=== PATIENT | male | born 1950 | race Caucasian/White ===

== ENCOUNTER → 2016-08-14 | Outpatient (CLI) | payer OTHER ==
[~2016-08-14] VITALS: Ht 172.7 cm; Wt 88.9 kg
[~2016-08-14] MED LIST: Ecotrin PO; LIPITOR80 MG PO; LOPRESSOR25 MG PO; NOHOMEMEDS; PLAVIX75 MG PO; ZESTRIL5 MG PO; Zestril,Prinivil PO
== END | disposition home or self-care (01) ==
LOC: AMB 11:21
DX: R10.13 Epigastric pain (principal); K29.90 Gastroduodenitis, unspecified, without bleeding; B96.81 Helicobacter pylori [H. pylori] as the cause of diseases classified elsewhere; K25.9 Gastric ulcer, unspecified as acute or chronic, without hemorrhage or perforation; Z12.11 Encounter for screening for malignant neoplasm of colon; D12.3 Benign neoplasm of transverse colon; K62.89 Other specified diseases of anus and rectum; K64.9 Unspecified hemorrhoids; K62.1 Rectal polyp; Z87.891 Personal history of nicotine dependence; M19.90 Unspecified osteoarthritis, unspecified site
CPT/HCPCS: 88305; 88342 TC; 93005; J3010

== ENCOUNTER 2017-06-12 14:48 | Emergency (ER) | payer OTHER ==
[~2017-06-12] VITALS: Ht 172.7 cm; Wt 88.1 kg
[2017-06-12] MEDS ORDERED: NORCO 5/3251 TABLET PO (16:49)
[2017-06-12] MEDS ORDERED: SKELAXIN800 MG PO (16:49)
[2017-06-12] MEDS ORDERED: MOTRIN600 MG PO (16:49)
[2017-06-12 17:00] VITALS: BP 136/78
== END 2017-06-12 17:01 | disposition home or self-care (01) ==
LOC: EME 14:48
DX: S29.012A Strain of muscle and tendon of back wall of thorax, initial encounter (principal); X58.XXXA Exposure to other specified factors, initial encounter; R05 Cough; E78.5 Hyperlipidemia, unspecified; I25.2 Old myocardial infarction; Z79.01 Long term (current) use of anticoagulants; F17.200 Nicotine dependence, unspecified, uncomplicated
CPT/HCPCS: 71020; 93005; 99281; 99283; J1885

== ENCOUNTER 2017-07-30 20:12 | Emergency (ER) | payer OTHER ==
[~2017-07-30] VITALS: Ht 172.7 cm; Wt 86.3 kg
[~2017-07-30 20:12] MED LIST changes: +MOTRIN600 MG PO; +NORCO 5/3251 TABLET PO; +SKELAXIN800 MG PO
[2017-07-30 20:47] LABS: HEMATOCRIT 44.2 % (38.0-50.0); HEMOGLOBIN 15.2 G/DL (12.5-16.6); MCHC 34.4 G/DL (30.0-36.0); MCV 90.2 FL (86-99); NRBC (%) 0.3 /100 WBC (0-0); PLATELET COUNT 83 K/uL (156-360); RBC DIS.WIDTH-CV 12.5 % (11.8-14.6); RBC DIS.WIDTH-SD 41.1 % (39-53)
[2017-07-30 20:58] LABS: CHLORIDE 106 mEq/L (99-109); POTASSIUM 3.7 mEq/L (3.7-5.4); SODIUM 137 mEq/L (136-147)
[2017-07-30 21:00] LABS: GLUCOSE 182 mg/dL (70-99)
[2017-07-30 21:04] LABS: CREATININE 0.9 mg/dL (0.6-1.3); GFR ESTIMATE (CALCULATED) > 59 mL/min/ (58.99-99999)
[2017-07-30 21:05] LABS: UREA NITROGEN (BUN) 27 mg/dL (9-23)
[2017-07-30 21:34] LABS: APPEARANCE CLEAR ((CLEAR)); BILIRUBIN NEGATIVE; BLOOD MODERATE; COLOR YELLOW ((YELLOW)); GLUCOSE (STRIP) NEGATIVE; KETONES NEGATIVE; LEUKOCYTES NEGATIVE; NITRITE NEGATIVE; PROTEIN (STRIP) NEGATIVE; SPECIFIC GRAVITY 1.016 (1.000-1.030); UROBILINOGEN 0.2 MG/DL (0.2-1.0)
[2017-07-30 21:52] LABS: BACTERIA NONE SEEN /HPF; EPITHELIAL CELLS NONE SEEN /HPF; MUCUS TRACE /LPF; RED BLOOD CELLS 30-40 /HPF (0-5); UCUL ADDED? NO; WHITE BLOOD CELLS 0-5 /HPF (0-5)
[2017-07-31] MEDS ORDERED: VENTOLIN HFA18 GM IH (00:56)
[2017-07-31] MEDS ORDERED: PROVENTIL,2.5 MG/3 M IH (00:56)
[2017-07-31 02:23] VITALS: BP 130/75
== END 2017-07-31 02:25 | disposition home or self-care (01) ==
LOC: EME 20:12
PROVIDERS: Nurse Practitioner Family
DX: J06.9 Acute upper respiratory infection, unspecified (principal); S20.212A Contusion of left front wall of thorax, initial encounter; X58.XXXA Exposure to other specified factors, initial encounter; F17.200 Nicotine dependence, unspecified, uncomplicated; E78.5 Hyperlipidemia, unspecified; I25.2 Old myocardial infarction
CPT/HCPCS: 71046; 80048; 81003; 85027; 87502; 94640; 99281; 99284

== ENCOUNTER 2017-08-31 20:16 | Inpatient (IN) | payer OTHER, MEDICARE ==
[~2017-08-31] VITALS: Ht 172.7 cm; Wt 82.2 kg
[~2017-08-31 20:16] MED LIST changes: +PROVENTIL,2.5 MG/3 M IH; +VENTOLIN HFA18 GM IH
[2017-08-31 21:11] LABS: HEMATOCRIT 21.8 % (38.0-50.0); HEMOGLOBIN 7.3 G/DL (12.5-16.6); MCH 31.5 PG (29.0-34.0); MCHC 33.5 G/DL (30.0-36.0); NRBC (%) 11.3 /100 WBC (0-0); RBC DIS.WIDTH-CV 16.5 % (11.8-14.6); RBC DIS.WIDTH-SD 51.8 % (39-53); RED BLOOD COUNT 2.32 M/uL (4.00-5.50); WHITE BLOOD COUNT 6.6 K/uL (4.1-10.2)
[2017-08-31] MEDS ORDERED: ALBUTEROL2.5 MG/3 M IH (21:17)
[2017-08-31] MEDS ORDERED: NARCAN4 MG NS (21:18)
[2017-08-31] MEDS ORDERED: AMARYL1 MG PO (21:18)
[2017-08-31] MEDS ORDERED: ENDOCET 5-3251 EACH PO (21:18)
[2017-08-31 21:19] LABS: ALBUMIN 3.4 g/dL (3.2-4.8); CHLORIDE 98 mEq/L (99-109); POTASSIUM 3.8 mEq/L (3.7-5.4); SODIUM 136 mEq/L (136-147)
[2017-08-31] MEDS ORDERED: CYANOCOBALAM1000 MCG PO (21:19)
[2017-08-31 21:21] LABS: GLUCOSE 168 mg/dL (70-99); TOTAL PROTEIN 6.1 g/dL (6.4-8.3)
[2017-08-31 21:23] LABS: TOTAL BILIRUBIN 4.9 mg/dL (0.0-1.0)
[2017-08-31 21:25] LABS: ALKALINE PHOSPHATASE 585 IU/L (3-129); CREATININE 0.8 mg/dL (0.6-1.3); GFR ESTIMATE (CALCULATED) > 59 mL/min/ (58.99-99999)
[2017-08-31 21:26] LABS: AST (GOT) 169 IU/L (2-34); INTER. NORMALIZED RATIO 1.4; UREA NITROGEN (BUN) 21 mg/dL (9-23)
[2017-08-31 21:27] LABS: DIRECT BILIRUBIN 3.7 mg/dL (0.0-0.3)
[2017-08-31 21:28] LABS: ALT (GPT) 197 IU/L (3-49); LIPASE 33 U/L (1.0-51.0); URIC ACID 6.7 mg/dL (3.1-9.2)
[2017-08-31 21:52] LABS: FIBRINOGEN 341 mg/dL (150-450)
[2017-08-31 22:01] LABS: ABS NEUTROPHIL COUNT 5.4; ANISOCYTOSIS 1+; BAND NEUTROPHILS 11.7 % (0-8.0); EOSINOPHIL ABS CT 0; HYPOCHROMASIA 2+; LACTATE DEHYDROGENASE 1079 IU/L (20-246); LYMPHOCYTES 10.8 % (15.0-45.0); MICROCYTOSIS 1+; MONOCYTES 6.3 % (0-9.0); MYELOCYTES 0.9 %; NUCLEATED RBC'S 13.5; PLAT.SUFFICIENCY VERY DECREASED; POLYCHROMASIA 2+; SCHISTOCYTES 1+; SEG.NEUTROPHILS 70.3 % (46.0-76.0); TEAR DROP CELLS 1+
[2017-08-31 22:02] LABS: IMM.PLATELET FRACTION 6.5 (1-7)
[2017-08-31 22:04] LABS: PLATELET COUNT 26 K/uL (156-360)
[2017-08-31 22:24] VITALS: BP 145/77
[2017-08-31 22:39] VITALS: BP 109/64
[2017-08-31 23:40] VITALS: BP 140/77
[2017-09-01] VITALS (7 sets, daily range): BP systolic 99–132; BP diastolic 57–81
[2017-09-01 04:03] LABS: HEMATOCRIT 22.6 % (38.0-50.0); HEMOGLOBIN 7.7 G/DL (12.5-16.6); MCHC 34.1 G/DL (30.0-36.0); MCV 93.8 FL (86-99); RBC DIS.WIDTH-CV 15.9 % (11.8-14.6); RBC DIS.WIDTH-SD 49.8 % (39-53); RED BLOOD COUNT 2.41 M/uL (4.00-5.50); WHITE BLOOD COUNT 6.6 K/uL (4.1-10.2)
[2017-09-01 04:15] LABS: CHLORIDE 100 mEq/L (99-109); POTASSIUM 3.9 mEq/L (3.7-5.4); SODIUM 137 mEq/L (136-147)
[2017-09-01 04:17] LABS: GLUCOSE 155 mg/dL (70-99)
[2017-09-01 04:21] LABS: CREATININE 0.7 mg/dL (0.6-1.3); GFR ESTIMATE (CALCULATED) > 59 mL/min/ (58.99-99999); UREA NITROGEN (BUN) 21 mg/dL (9-23)
[2017-09-01 04:53] LABS: IMM.PLATELET FRACTION 6.8 (1-7); PLAT.SUFFICIENCY VERY DECREASED; PLATELET COUNT 23 K/uL (156-360)
[2017-09-01 10:32] LABS: TROP-I INTERPRETATION NEGATIVE; TROPONIN-I 0.01 ng/mL (0.0-0.30)
[2017-09-01 16:38] LABS: ALBUMIN 3.4 G/DL (3.2-4.8); CHLORIDE 100 MEQ/L (99-109); POTASSIUM 3.7 MEQ/L (3.7-5.4); SODIUM 135 MEQ/L (136-147); TOTAL BILIRUBIN 6.1 MG/DL (0.0-1.0)
[2017-09-01 16:54] LABS: ALKALINE PHOSPHATASE 555 IU/L (3-129); ALT (GPT) 147 IU/L (3-49); AST (GOT) 159 IU/L (2-34); CREATININE 0.7 MG/DL (0.6-1.3); GFR ESTIMATE (CALCULATED) > 59 mL/min/ (58.99-99999); GLUCOSE 173 mg/dL (70-99); TOTAL PROTEIN 5.7 G/DL (6.4-8.3); UREA NITROGEN (BUN) 21 mg/dL (9-23); URIC ACID 6.4 mg/dL (3.1-9.2)
[2017-09-01 17:03] LABS: HEMATOCRIT 22.9 % (38.0-50.0); HEMOGLOBIN 7.4 G/DL (12.5-16.6); MCH 30.6 PG (29.0-34.0); MCHC 32.3 G/DL (30.0-36.0); MCV 94.6 FL (86-99); NRBC (%) 12.1 /100 WBC (0-0); RBC DIS.WIDTH-CV 16.2 % (11.8-14.6); RBC DIS.WIDTH-SD 50.2 % (39-53); RED BLOOD COUNT 2.42 M/uL (4.00-5.50); WHITE BLOOD COUNT 6.2 K/uL (4.1-10.2)
[2017-09-01 17:56] LABS: ABS NEUTROPHIL COUNT 4.3; ANISOCYTOSIS 1+; BAND NEUTROPHILS 29.8 % (0-8.0); EOSINOPHIL ABS CT 0.1; EOSINOPHILS 0.9 % (0-5.0); HEMATOLOGY COMMENT 1 SN; HYPOCHROMASIA 1+; IMM.PLATELET FRACTION 6.7 (1-7); LYMPHOCYTES 15.8 % (15.0-45.0); METAMYELOCYTES 1.8 %; MONOCYTES 6.1 % (0-9.0); MYELOCYTES 5.3 %; NUCLEATED RBC'S 10.5; PLAT.SUFFICIENCY DECREASED; POLYCHROMASIA 1+
[2017-09-01 17:57] LABS: PLATELET COUNT 25 K/uL (156-360); SEG.NEUTROPHILS 40.3 % (46.0-76.0)
[2017-09-01 18:03] LABS: LACTATE DEHYDROGENASE 1447 IU/L (20-246)
[2017-09-02] VITALS (11 sets, daily range): BP systolic 93–123; BP diastolic 52–65
[2017-09-02 07:13] LABS: HEMATOCRIT 20.5 % (38.0-50.0); MCH 31.5 PG (29.0-34.0); MCHC 33.2 G/DL (30.0-36.0); MCV 94.9 FL (86-99); NRBC (%) 8.4 /100 WBC (0-0); RBC DIS.WIDTH-CV 16.3 % (11.8-14.6); RBC DIS.WIDTH-SD 52.6 % (39-53); RED BLOOD COUNT 2.16 M/uL (4.00-5.50); WHITE BLOOD COUNT 4.2 K/uL (4.1-10.2)
[2017-09-02 07:14] LABS: HEMOGLOBIN 6.8 G/DL (12.5-16.6)
[2017-09-02 07:25] LABS: ABS NEUTROPHIL COUNT 2.9; BASOPHILS 1.7 %; EOSINOPHIL ABS CT 0; IMM.PLATELET FRACTION 7.1 (1-7); LYMPHOCYTES 13.9 % (15.0-45.0); MONOCYTES 6.1 % (0-9.0); MYELOCYTES 1.7 %; NUCLEATED RBC'S 7.8; PLAT.SUFFICIENCY DECREASED; SEG.NEUTROPHILS 56.6 % (46.0-76.0); SMUDGE CELLS 12.2
[2017-09-02 07:37] LABS: PLATELET COUNT 20 K/uL (156-360)
[2017-09-02 07:41] LABS: ALBUMIN 3.1 G/DL (3.2-4.8); ALKALINE PHOSPHATASE 578 IU/L (3-129); ALT (GPT) 145 IU/L (3-49); AST (GOT) 161 IU/L (2-34); CHLORIDE 102 MEQ/L (99-109); CREATININE 0.7 MG/DL (0.6-1.3); DIRECT BILIRUBIN 3.7 mg/dL (0.0-0.3); GFR ESTIMATE (CALCULATED) > 59 mL/min/ (58.99-99999); GLUCOSE 172 mg/dL (70-99); LACTATE DEHYDROGENASE 1301 IU/L (20-246); PHOSPHORUS 2.6 mg/dL (2.5-4.9); POTASSIUM 3.5 MEQ/L (3.7-5.4); SODIUM 138 MEQ/L (136-147); TOTAL BILIRUBIN 6.2 MG/DL (0.0-1.0); TOTAL PROTEIN 5.1 G/DL (6.4-8.3); UREA NITROGEN (BUN) 24 mg/dL (9-23); URIC ACID 7.7 mg/dL (3.1-9.2)
[2017-09-02 18:17] LABS: MCH 30.7 PG (29.0-34.0); MCHC 32.6 G/DL (30.0-36.0); MCV 94.1 FL (86-99); NRBC (%) 4.8 /100 WBC (0-0); RBC DIS.WIDTH-SD 51.2 % (39-53); WHITE BLOOD COUNT 3.5 K/uL (4.1-10.2)
[2017-09-02 18:32] LABS: CHLORIDE 98 MEQ/L (99-109); CREATININE 0.8 MG/DL (0.6-1.3); GFR ESTIMATE (CALCULATED) > 59 mL/min/ (58.99-99999); GLUCOSE 266 mg/dL (70-99); PHOSPHORUS 3.1 mg/dL (2.5-4.9); POTASSIUM 3.5 MEQ/L (3.7-5.4); SODIUM 134 MEQ/L (136-147); UREA NITROGEN (BUN) 23 mg/dL (9-23); URIC ACID 7.8 mg/dL (3.1-9.2)
[2017-09-02 18:36] LABS: ABS NEUTROPHIL COUNT 2.4; ANISOCYTOSIS 1+; ATYPICAL LYMPHOCYTE 1.8 %; EOSINOPHIL ABS CT 0; HEMATOLOGY COMMENT 1 SN; HEMOGLOBIN 8.8 G/DL (12.5-16.6); HYPOCHROMASIA 2+; IMM.PLATELET FRACTION 7.1 (1-7); LYMPHOCYTES 23.9 % (15.0-45.0); METAMYELOCYTES 0.9 %; MICROCYTOSIS 1+; MONOCYTES 1.7 % (0-9.0); MYELOCYTES 1.8 %; NUCLEATED RBC'S 3.5; PLAT.SUFFICIENCY DECREASED; PLATELET COUNT 23 K/uL (156-360); POLYCHROMASIA 1+; RED BLOOD COUNT 2.87 M/uL (4.00-5.50)
[2017-09-02 18:37] LABS: SEG.NEUTROPHILS 23.9 % (46.0-76.0)
[2017-09-03 04:39] VITALS: BP 116/61
[2017-09-03 07:04] LABS: HEMATOCRIT 27.7 % (38.0-50.0); HEMOGLOBIN 9.3 G/DL (12.5-16.6); MCH 31.3 PG (29.0-34.0); MCHC 33.6 G/DL (30.0-36.0); MCV 93.3 FL (86-99); NRBC (%) 7.3 /100 WBC (0-0); RBC DIS.WIDTH-CV 16.4 % (11.8-14.6); RBC DIS.WIDTH-SD 51.3 % (39-53); RED BLOOD COUNT 2.97 M/uL (4.00-5.50); WHITE BLOOD COUNT 2.2 K/uL (4.1-10.2)
[2017-09-03 07:10] VITALS: BP 127/59
[2017-09-03 07:30] LABS: PLAT.SUFFICIENCY VERY DECREASED
[2017-09-03 07:33] LABS: IMM.PLATELET FRACTION 7.9 (1-7); PLATELET COUNT 27 K/uL (156-360)
[2017-09-03 07:53] LABS: ALBUMIN 3.4 G/DL (3.2-4.8); ALKALINE PHOSPHATASE 576 IU/L (3-129); ALT (GPT) 147 IU/L (3-49); AST (GOT) 153 IU/L (2-34); CHLORIDE 97 MEQ/L (99-109); CREATININE 0.7 MG/DL (0.6-1.3); GFR ESTIMATE (CALCULATED) > 59 mL/min/ (58.99-99999); GLUCOSE 209 mg/dL (70-99); SODIUM 135 MEQ/L (136-147); TOTAL PROTEIN 5.6 G/DL (6.4-8.3); UREA NITROGEN (BUN) 26 mg/dL (9-23)
[2017-09-03 07:57] LABS: TOTAL BILIRUBIN 8.7 MG/DL (0.0-1.0)
[2017-09-03 11:12] VITALS: BP 100/58
[2017-09-03 17:20] VITALS: BP 115/56
[2017-09-03 20:10] VITALS: BP 104/55
[2017-09-03 23:50] VITALS: BP 119/64
[2017-09-04] VITALS (7 sets, daily range): BP systolic 99–124; BP diastolic 56–69
[2017-09-04 07:06] LABS: HEMATOCRIT 23.3 % (38.0-50.0); HEMOGLOBIN 7.7 G/DL (12.5-16.6); MCH 30.1 PG (29.0-34.0); RBC DIS.WIDTH-SD 50.6 % (39-53); RED BLOOD COUNT 2.56 M/uL (4.00-5.50); WHITE BLOOD COUNT 1.2 K/uL (4.1-10.2)
[2017-09-04 07:09] LABS: ALT (GPT) 125 IU/L (3-49); AST (GOT) 133 IU/L (2-34); CHLORIDE 95 MEQ/L (99-109); CREATININE 0.7 MG/DL (0.6-1.3); GFR ESTIMATE (CALCULATED) > 59 mL/min/ (58.99-99999); GLUCOSE 218 mg/dL (70-99); MAGNESIUM 2.2 mg/dl (1.3-2.7); POTASSIUM 3.8 MEQ/L (3.7-5.4); SODIUM 131 MEQ/L (136-147); TOTAL BILIRUBIN 7.9 MG/DL (0.0-1.0); TOTAL PROTEIN 5.8 G/DL (6.4-8.3); UREA NITROGEN (BUN) 28 mg/dL (9-23)
[2017-09-04 07:11] LABS: ALKALINE PHOSPHATASE 403 IU/L (3-129)
[2017-09-04 07:29] LABS: HEMATOLOGY COMMENT 1 SN; IMM.PLATELET FRACTION 6.9 (1-7); PLAT.SUFFICIENCY VERY DECREASED
[2017-09-04 07:42] LABS: PLATELET COUNT 15 K/uL (156-360)
[2017-09-04 16:42] LABS: HEMATOCRIT 20.9 % (38.0-50.0); MCH 30.7 PG (29.0-34.0); MCHC 33.5 G/DL (30.0-36.0); MCV 91.7 FL (86-99); RBC DIS.WIDTH-SD 51.3 % (39-53); RED BLOOD COUNT 2.28 M/uL (4.00-5.50)
[2017-09-04 16:45] LABS: WHITE BLOOD COUNT 1.3 K/uL (4.1-10.2)
[2017-09-04 16:53] LABS: IMM.PLATELET FRACTION 6.8 (1-7); PLAT.SUFFICIENCY VERY DECREASED
[2017-09-04 16:57] LABS: PLATELET COUNT 13 K/uL (156-360)
[2017-09-05] VITALS (13 sets, daily range): BP systolic 87–122; BP diastolic 50–81
[2017-09-05 05:58] LABS: HEMATOCRIT 19.5 % (38.0-50.0); MCH 31.4 PG (29.0-34.0); MCHC 33.8 G/DL (30.0-36.0); MCV 92.9 FL (86-99); RBC DIS.WIDTH-SD 51.7 % (39-53)
[2017-09-05 05:59] LABS: HEMOGLOBIN 6.6 G/DL (12.5-16.6)
[2017-09-05 06:05] LABS: ALBUMIN 2.7 G/DL (3.2-4.8); ALKALINE PHOSPHATASE 323 IU/L (3-129); ALT (GPT) 102 IU/L (3-49); AST (GOT) 123 IU/L (2-34); CHLORIDE 97 MEQ/L (99-109); CREATININE 0.7 MG/DL (0.6-1.3); GFR ESTIMATE (CALCULATED) > 59 mL/min/ (58.99-99999); GLUCOSE 178 mg/dL (70-99); POTASSIUM 3.8 MEQ/L (3.7-5.4); SODIUM 133 MEQ/L (136-147); TOTAL BILIRUBIN 6.9 MG/DL (0.0-1.0); TOTAL PROTEIN 4.9 G/DL (6.4-8.3); UREA NITROGEN (BUN) 30 mg/dL (9-23)
[2017-09-05 06:30] LABS: IMM.PLATELET FRACTION 5.3 (1-7); PLAT.SUFFICIENCY VERY DECREASED; PLATELET COUNT 11 K/uL (156-360)
[2017-09-05 22:26] LABS: HEMATOCRIT 22.6 % (38.0-50.0); HEMOGLOBIN 7.8 G/DL (12.5-16.6); MCV 90.8 FL (86-99)
[2017-09-06] VITALS (14 sets, daily range): BP systolic 81–134; BP diastolic 52–64
[2017-09-06 09:39] LABS: HEMATOCRIT 23.4 % (38.0-50.0); HEMOGLOBIN 7.9 G/DL (12.5-16.6); MCH 30.6 PG (29.0-34.0); MCHC 33.8 G/DL (30.0-36.0); MCV 90.7 FL (86-99); RBC DIS.WIDTH-CV 16.2 % (11.8-14.6); RBC DIS.WIDTH-SD 52.6 % (39-53)
[2017-09-06 09:40] LABS: RED BLOOD COUNT 2.58 M/uL (4.00-5.50); WHITE BLOOD COUNT 1.3 K/uL (4.1-10.2)
[2017-09-06 09:45] LABS: ALBUMIN 2.9 G/DL (3.2-4.8); ALKALINE PHOSPHATASE 332 IU/L (3-129); ALT (GPT) 95 IU/L (3-49); AST (GOT) 118 IU/L (2-34); CHLORIDE 99 MEQ/L (99-109); CREATININE 0.6 MG/DL (0.6-1.3); GFR ESTIMATE (CALCULATED) > 59 mL/min/ (58.99-99999); GLUCOSE 252 mg/dL (70-99); POTASSIUM 4.1 MEQ/L (3.7-5.4); SODIUM 133 MEQ/L (136-147); TOTAL BILIRUBIN 6.3 MG/DL (0.0-1.0); TOTAL PROTEIN 5.2 G/DL (6.4-8.3); UREA NITROGEN (BUN) 25 mg/dL (9-23)
[2017-09-06 09:53] LABS: ANISOCYTOSIS 1+; ATYPICAL LYMPHOCYTE 1.8 %; EOSINOPHIL ABS CT 0; IMM.PLATELET FRACTION 4.6 (1-7); LYMPHOCYTES 19.8 % (15.0-45.0); METAMYELOCYTES 0.9 %; MYELOCYTES 1.8 %; PLAT.SUFFICIENCY VERY DECREASED
[2017-09-06 10:21] LABS: SEG.NEUTROPHILS 75.7 % (46.0-76.0)
[2017-09-06 10:25] LABS: PLATELET COUNT 25 K/uL (156-360)
[2017-09-07 04:00] VITALS: BP 145/67
[2017-09-07 05:48] LABS: HEMATOCRIT 23.3 % (38.0-50.0); HEMOGLOBIN 7.9 G/DL (12.5-16.6); MCH 30.2 PG (29.0-34.0); MCHC 33.9 G/DL (30.0-36.0); MCV 88.9 FL (86-99); RBC DIS.WIDTH-CV 16.5 % (11.8-14.6); RBC DIS.WIDTH-SD 52.5 % (39-53); RED BLOOD COUNT 2.62 M/uL (4.00-5.50)
[2017-09-07 05:49] LABS: WHITE BLOOD COUNT 1.1 K/uL (4.1-10.2)
[2017-09-07 06:17] LABS: ALKALINE PHOSPHATASE 343 IU/L (3-129); ALT (GPT) 99 IU/L (3-49); AST (GOT) 116 IU/L (2-34); CHLORIDE 97 MEQ/L (99-109); CREATININE 0.6 MG/DL (0.6-1.3); GFR ESTIMATE (CALCULATED) > 59 mL/min/ (58.99-99999); GLUCOSE 223 mg/dL (70-99); POTASSIUM 3.9 MEQ/L (3.7-5.4); SODIUM 134 MEQ/L (136-147); TOTAL BILIRUBIN 6.1 MG/DL (0.0-1.0); TOTAL PROTEIN 5.7 G/DL (6.4-8.3); UREA NITROGEN (BUN) 25 mg/dL (9-23)
[2017-09-07 06:21] LABS: ABS NEUTROPHIL COUNT 0.9; BAND NEUTROPHILS 5.3 % (0-8.0); EOSINOPHIL ABS CT 0; HELMET CELLS 1+; HYPOCHROMASIA 1+; IMM.PLATELET FRACTION 3.8 (1-7); LYMPHOCYTES 13.4 % (15.0-45.0); METAMYELOCYTES 2.7 %; MONOCYTES 0.9 % (0-9.0); MYELOCYTES 1.8 %; PLAT.SUFFICIENCY VERY DECREASED; PLATELET COUNT 17 K/uL (156-360); SEG.NEUTROPHILS 72.3 % (46.0-76.0)
[2017-09-07 07:45] VITALS: BP 131/74
[2017-09-07 11:30] VITALS: BP 110/55
[2017-09-07 16:44] VITALS: BP 100/58
[2017-09-07 19:30] VITALS: BP 119/65
[2017-09-08] VITALS (16 sets, daily range): BP systolic 100–124; BP diastolic 56–79
[2017-09-08 10:21] LABS: HEMATOCRIT 22.5 % (38.0-50.0); HEMOGLOBIN 7.5 G/DL (12.5-16.6); MCH 30.5 PG (29.0-34.0); MCHC 33.3 G/DL (30.0-36.0); MCV 91.5 FL (86-99); NRBC (%) 1.2 /100 WBC (0-0); RBC DIS.WIDTH-CV 16.3 % (11.8-14.6); RED BLOOD COUNT 2.46 M/uL (4.00-5.50)
[2017-09-08 10:24] LABS: ABS NEUTROPHIL COUNT 1.2; EOSINOPHIL ABS CT 0; IMM.PLATELET FRACTION 5.4 (1-7); LYMPHOCYTES 26.5 % (15.0-45.0); METAMYELOCYTES 1.8 %; MONOCYTES 0.9 % (0-9.0); NUCLEATED RBC'S 1.8; PLAT.SUFFICIENCY VERY DECREASED; SEG.NEUTROPHILS 62.8 % (46.0-76.0); SMUDGE CELLS 10.6
[2017-09-08 10:25] LABS: PLATELET COUNT 11 K/uL (156-360); WHITE BLOOD COUNT 1.7 K/uL (4.1-10.2)
[2017-09-09] VITALS (15 sets, daily range): BP systolic 99–123; BP diastolic 53–85
[2017-09-09 06:01] LABS: HEMATOCRIT 18.3 % (38.0-50.0); MCH 29.9 PG (29.0-34.0); MCHC 33.3 G/DL (30.0-36.0); MCV 89.7 FL (86-99); NRBC (%) 2.8 /100 WBC (0-0); RBC DIS.WIDTH-CV 15.7 % (11.8-14.6); RBC DIS.WIDTH-SD 50.3 % (39-53); RED BLOOD COUNT 2.04 M/uL (4.00-5.50)
[2017-09-09 06:15] LABS: ALBUMIN 2.7 G/DL (3.2-4.8); ALKALINE PHOSPHATASE 279 IU/L (3-129); ALT (GPT) 96 IU/L (3-49); AST (GOT) 142 IU/L (2-34); CHLORIDE 96 MEQ/L (99-109); CREATININE 0.7 MG/DL (0.6-1.3); GFR ESTIMATE (CALCULATED) > 59 mL/min/ (58.99-99999); GLUCOSE 198 mg/dL (70-99); POTASSIUM 3.4 MEQ/L (3.7-5.4); SODIUM 136 MEQ/L (136-147); UREA NITROGEN (BUN) 30 mg/dL (9-23)
[2017-09-09 06:16] LABS: TOTAL BILIRUBIN 4.6 MG/DL (0.0-1.0)
[2017-09-09 06:55] LABS: HEMOGLOBIN 6.1 G/DL (12.5-16.6); WHITE BLOOD COUNT 1.4 K/uL (4.1-10.2)
[2017-09-09 07:28] LABS: ABS NEUTROPHIL COUNT 0.6; EOSINOPHIL ABS CT 0; IMM.PLATELET FRACTION 3.1 (1-7); PLAT.SUFFICIENCY DECREASED; PLATELET COUNT 23 K/uL (156-360)
[2017-09-10 03:53] VITALS: BP 125/65
[2017-09-10 06:05] LABS: ALBUMIN 2.8 G/DL (3.2-4.8); ALKALINE PHOSPHATASE 287 IU/L (3-129); ALT (GPT) 99 IU/L (3-49); AST (GOT) 148 IU/L (2-34); CHLORIDE 94 MEQ/L (99-109); CREATININE 0.6 MG/DL (0.6-1.3); GFR ESTIMATE (CALCULATED) > 59 mL/min/ (58.99-99999); GLUCOSE 191 mg/dL (70-99); POTASSIUM 3.2 MEQ/L (3.7-5.4); SODIUM 135 MEQ/L (136-147); TOTAL BILIRUBIN 5.7 MG/DL (0.0-1.0); UREA NITROGEN (BUN) 28 mg/dL (9-23)
[2017-09-10 06:07] LABS: HEMATOCRIT 22.5 % (38.0-50.0); HEMOGLOBIN 7.6 G/DL (12.5-16.6); MCHC 33.8 G/DL (30.0-36.0); MCV 88.9 FL (86-99); NRBC (%) 4.7 /100 WBC (0-0); RBC DIS.WIDTH-CV 15.3 % (11.8-14.6); RBC DIS.WIDTH-SD 48.5 % (39-53)
[2017-09-10 06:41] LABS: RED BLOOD COUNT 2.53 M/uL (4.00-5.50); WHITE BLOOD COUNT 1.9 K/uL (4.1-10.2)
[2017-09-10 07:03] LABS: ABS NEUTROPHIL COUNT 1.1; ANISOCYTOSIS 1+; BAND NEUTROPHILS 7.2 % (0-8.0); EOSINOPHIL ABS CT 0; MICROCYTOSIS 1+; MONOCYTES 7.2 % (0-9.0); MYELOCYTES 2.1 %; NUCLEATED RBC'S 8.2; PLAT.SUFFICIENCY VERY DECREASED; POLYCHROMASIA 1+; SEG.NEUTROPHILS 49.5 % (46.0-76.0)
[2017-09-10 07:06] LABS: PLATELET COUNT 24 K/uL (156-360)
[2017-09-10 07:53] VITALS: BP 103/60
[2017-09-10 11:53] VITALS: BP 94/50
[2017-09-10 15:16] VITALS: BP 101/60
[2017-09-10 20:06] VITALS: BP 99/57
[2017-09-10 23:00] VITALS: BP 99/57
[2017-09-11] VITALS (13 sets, daily range): BP systolic 89–121; BP diastolic 52–63
[2017-09-11 05:50] LABS: HEMATOCRIT 21.8 % (38.0-50.0); HEMOGLOBIN 7.2 G/DL (12.5-16.6); MCH 30.3 PG (29.0-34.0); MCV 91.6 FL (86-99); NRBC (%) 2.1 /100 WBC (0-0); RBC DIS.WIDTH-CV 15.7 % (11.8-14.6); RBC DIS.WIDTH-SD 51.2 % (39-53); RED BLOOD COUNT 2.38 M/uL (4.00-5.50); WHITE BLOOD COUNT 2.3 K/uL (4.1-10.2)
[2017-09-11 06:40] LABS: ALBUMIN 2.7 G/DL (3.2-4.8); ALKALINE PHOSPHATASE 296 IU/L (3-129); ALT (GPT) 85 IU/L (3-49); AST (GOT) 130 IU/L (2-34); CHLORIDE 96 MEQ/L (99-109); CREATININE 0.6 MG/DL (0.6-1.3); GFR ESTIMATE (CALCULATED) > 59 mL/min/ (58.99-99999); GLUCOSE 188 mg/dL (70-99); POTASSIUM 3.4 MEQ/L (3.7-5.4); SODIUM 137 MEQ/L (136-147); UREA NITROGEN (BUN) 26 mg/dL (9-23); URIC ACID 5.6 mg/dL (3.1-9.2)
[2017-09-11 06:43] LABS: TOTAL BILIRUBIN 4.5 MG/DL (0.0-1.0)
[2017-09-11 07:44] LABS: ABS NEUTROPHIL COUNT 1.3; ANISOCYTOSIS 1+; EOSINOPHIL ABS CT 0; IMM.PLATELET FRACTION 5.1 (1-7); PLAT.SUFFICIENCY VERY DECREASED; POLYCHROMASIA 1+
[2017-09-11 07:45] LABS: PLATELET COUNT 14 K/uL (156-360)
[2017-09-12 03:30] VITALS: BP 120/69
[2017-09-12 08:25] VITALS: BP 117/66
[2017-09-12 09:10] LABS: HEMATOCRIT 22.5 % (38.0-50.0); HEMOGLOBIN 7.5 G/DL (12.5-16.6); MCH 31.3 PG (29.0-34.0); MCHC 33.3 G/DL (30.0-36.0); MCV 93.8 FL (86-99); NRBC (%) 1.4 /100 WBC (0-0); RBC DIS.WIDTH-CV 15.6 % (11.8-14.6); WHITE BLOOD COUNT 2.1 K/uL (4.1-10.2)
[2017-09-12 10:02] LABS: ABS NEUTROPHIL COUNT 1.5; ANISOCYTOSIS 1+; ATYPICAL LYMPHOCYTE 0.9 %; BAND NEUTROPHILS 1.9 % (0-8.0); EOSINOPHIL ABS CT 0; LYMPHOCYTES 21.5 % (15.0-45.0); MONOCYTES 5.6 % (0-9.0); MYELOCYTES 0.9 %; NUCLEATED RBC'S 0.9; PLAT.SUFFICIENCY VERY DECREASED
[2017-09-12 10:04] LABS: IMM.PLATELET FRACTION 5.8 (1-7); PLATELET COUNT 18 K/uL (156-360); SEG.NEUTROPHILS 69.2 % (46.0-76.0)
[2017-09-12 11:52] VITALS: BP 116/63
[2017-09-12 15:48] VITALS: BP 117/66
[2017-09-12 19:15] VITALS: BP 103/65
[2017-09-13] VITALS (11 sets, daily range): BP systolic 105–116; BP diastolic 57–68
[2017-09-13 05:30] LABS: HEMATOCRIT 21.3 % (38.0-50.0); MCH 30.2 PG (29.0-34.0); MCHC 32.9 G/DL (30.0-36.0); MCV 91.8 FL (86-99); NRBC (%) 1.3 /100 WBC (0-0); RBC DIS.WIDTH-CV 15.6 % (11.8-14.6); RBC DIS.WIDTH-SD 51.1 % (39-53); RED BLOOD COUNT 2.32 M/uL (4.00-5.50); WHITE BLOOD COUNT 3.1 K/uL (4.1-10.2)
[2017-09-13 05:52] LABS: ALBUMIN 2.9 G/DL (3.2-4.8); ALKALINE PHOSPHATASE 293 IU/L (3-129); ALT (GPT) 86 IU/L (3-49); AST (GOT) 125 IU/L (2-34); CHLORIDE 96 MEQ/L (99-109); CREATININE 0.5 MG/DL (0.6-1.3); GFR ESTIMATE (CALCULATED) > 59 mL/min/ (58.99-99999); GLUCOSE 177 mg/dL (70-99); POTASSIUM 3.3 MEQ/L (3.7-5.4); SODIUM 136 MEQ/L (136-147); TOTAL PROTEIN 5.1 G/DL (6.4-8.3); UREA NITROGEN (BUN) 25 mg/dL (9-23)
[2017-09-13 05:53] LABS: TOTAL BILIRUBIN 5.7 MG/DL (0.0-1.0)
[2017-09-13 05:56] LABS: ABS NEUTROPHIL COUNT 2.4; BAND NEUTROPHILS 4.4 % (0-8.0); EOSINOPHIL ABS CT 0; EOSINOPHILS 0.9 % (0-5.0); IMM.PLATELET FRACTION 10.3 (1-7); LYMPHOCYTES 12.5 % (15.0-45.0); METAMYELOCYTES 3.6 %; MONOCYTES 3.6 % (0-9.0); MYELOCYTES 2.7 %; PLAT.SUFFICIENCY VERY DECREASED; SEG.NEUTROPHILS 72.3 % (46.0-76.0); TEAR DROP CELLS 1+
[2017-09-13 05:57] LABS: PLATELET COUNT 15 K/uL (156-360)
[2017-09-14] VITALS (11 sets, daily range): BP systolic 97–127; BP diastolic 54–85
[2017-09-14 05:58] LABS: HEMATOCRIT 22.5 % (38.0-50.0); HEMOGLOBIN 7.4 G/DL (12.5-16.6); MCH 29.7 PG (29.0-34.0); MCHC 32.9 G/DL (30.0-36.0); MCV 90.4 FL (86-99); NRBC (%) 1.4 /100 WBC (0-0); RBC DIS.WIDTH-CV 16.5 % (11.8-14.6); RBC DIS.WIDTH-SD 53.5 % (39-53); RED BLOOD COUNT 2.49 M/uL (4.00-5.50); WHITE BLOOD COUNT 5.7 K/uL (4.1-10.2)
[2017-09-14 06:29] LABS: ABS NEUTROPHIL COUNT 5.4; EOSINOPHIL ABS CT 0; HYPOCHROMASIA 2+; IMM.PLATELET FRACTION 8.7 (1-7); LYMPHOCYTES 2.7 % (15.0-45.0); MONOCYTES 0.9 % (0-9.0); MYELOCYTES 1.8 %; NUCLEATED RBC'S 2.7; PLAT.SUFFICIENCY VERY DECREASED; SEG.NEUTROPHILS 65.2 % (46.0-76.0); SMUDGE CELLS 27.7; TARGET CELLS 3+
[2017-09-14 06:34] LABS: BAND NEUTROPHILS 29.4 % (0-8.0); PLATELET COUNT 16 K/uL (156-360)
[2017-09-15] VITALS (14 sets, daily range): BP systolic 101–125; BP diastolic 57–65
[2017-09-15 05:44] LABS: HEMATOCRIT 22.1 % (38.0-50.0); HEMOGLOBIN 7.3 G/DL (12.5-16.6); MCV 90.9 FL (86-99); NRBC (%) 0.8 /100 WBC (0-0); RBC DIS.WIDTH-CV 16.3 % (11.8-14.6); RBC DIS.WIDTH-SD 53.2 % (39-53); RED BLOOD COUNT 2.43 M/uL (4.00-5.50)
[2017-09-15 06:16] LABS: ALBUMIN 2.8 G/DL (3.2-4.8); ALKALINE PHOSPHATASE 308 IU/L (3-129); ALT (GPT) 89 IU/L (3-49); AST (GOT) 125 IU/L (2-34); CHLORIDE 95 MEQ/L (99-109); CREATININE 0.5 MG/DL (0.6-1.3); GFR ESTIMATE (CALCULATED) > 59 mL/min/ (58.99-99999); POTASSIUM 3.1 MEQ/L (3.7-5.4); SODIUM 137 MEQ/L (136-147); TOTAL BILIRUBIN 5.9 MG/DL (0.0-1.0); TOTAL PROTEIN 5.2 G/DL (6.4-8.3); UREA NITROGEN (BUN) 22 mg/dL (9-23)
[2017-09-15 06:17] LABS: GLUCOSE 113 mg/dL (70-99)
[2017-09-15 06:21] LABS: ABS NEUTROPHIL COUNT 5.3; ANISOCYTOSIS 1+; BAND NEUTROPHILS 3.6 % (0-8.0); EOSINOPHIL ABS CT 0; IMM.PLATELET FRACTION 7.5 (1-7); LYMPHOCYTES 4.5 % (15.0-45.0); METAMYELOCYTES 0.9 %; MONOCYTES 7.1 % (0-9.0); PLAT.SUFFICIENCY VERY DECREASED; PLATELET COUNT 18 K/uL (156-360); SEG.NEUTROPHILS 83.9 % (46.0-76.0)
[2017-09-16 00:25] VITALS: BP 110/66
[2017-09-16 04:30] VITALS: BP 114/59
[2017-09-16 05:43] LABS: HEMATOCRIT 20.9 % (38.0-50.0); MCH 30.4 PG (29.0-34.0); MCHC 33.5 G/DL (30.0-36.0); MCV 90.9 FL (86-99); RBC DIS.WIDTH-SD 52.8 % (39-53)
[2017-09-16 05:47] LABS: CHLORIDE 94 MEQ/L (99-109); CREATININE 0.5 MG/DL (0.6-1.3); GFR ESTIMATE (CALCULATED) > 59 mL/min/ (58.99-99999); GLUCOSE 145 mg/dL (70-99); SODIUM 138 MEQ/L (136-147); UREA NITROGEN (BUN) 20 mg/dL (9-23)
[2017-09-16 06:12] LABS: ABS NEUTROPHIL COUNT 4.9; ANISOCYTOSIS 1+; BAND NEUTROPHILS 0.9 % (0-8.0); EOSINOPHIL ABS CT 0; HYPOCHROMASIA 2+; IMM.PLATELET FRACTION 8.3 (1-7); LYMPHOCYTES 4.5 % (15.0-45.0); METAMYELOCYTES 6.2 %; MICROCYTOSIS 2+; MONOCYTES 6.2 % (0-9.0); MYELOCYTES 1.8 %; PLAT.SUFFICIENCY VERY DECREASED; SEG.NEUTROPHILS 80.4 % (46.0-76.0); TARGET CELLS 2+; TEAR DROP CELLS 1+
[2017-09-16 06:13] LABS: PLATELET COUNT 20 K/uL (156-360)
[2017-09-16 08:00] VITALS: BP 113/63
[2017-09-16 11:37] VITALS: BP 102/59
[2017-09-16 17:07] VITALS: BP 120/63
[2017-09-16 21:06] VITALS: BP 113/67
[2017-09-17] VITALS (15 sets, daily range): BP systolic 112–157; BP diastolic 64–78
[2017-09-17 06:37] LABS: HEMATOCRIT 21.2 % (38.0-50.0); RBC DIS.WIDTH-CV 16.2 % (11.8-14.6); RBC DIS.WIDTH-SD 52.9 % (39-53); RED BLOOD COUNT 2.33 M/uL (4.00-5.50); WHITE BLOOD COUNT 5.1 K/uL (4.1-10.2)
[2017-09-17 06:38] LABS: ALBUMIN 2.9 G/DL (3.2-4.8); ALKALINE PHOSPHATASE 316 IU/L (3-129); ALT (GPT) 87 IU/L (3-49); AST (GOT) 121 IU/L (2-34); CHLORIDE 97 MEQ/L (99-109); CREATININE 0.4 MG/DL (0.6-1.3); GFR ESTIMATE (CALCULATED) > 59 mL/min/ (58.99-99999); GLUCOSE 120 mg/dL (70-99); POTASSIUM 3.2 MEQ/L (3.7-5.4); SODIUM 138 MEQ/L (136-147); TOTAL BILIRUBIN 5.4 MG/DL (0.0-1.0); TOTAL PROTEIN 5.2 G/DL (6.4-8.3); UREA NITROGEN (BUN) 17 mg/dL (9-23)
[2017-09-17 07:04] LABS: ABS NEUTROPHIL COUNT 4.3; ANISOCYTOSIS 1+; BAND NEUTROPHILS 10.4 % (0-8.0); BASOPHILS 0.9 %; EOSINOPHIL ABS CT 0; IMM.PLATELET FRACTION 11.2 (1-7); LYMPHOCYTES 6.1 % (15.0-45.0); METAMYELOCYTES 0.9 %; MONOCYTES 6.9 % (0-9.0); MYELOCYTES 0.9 %; PLAT.SUFFICIENCY VERY DECREASED; SCHISTOCYTES 1+; SEG.NEUTROPHILS 73.9 % (46.0-76.0); TARGET CELLS 1+
[2017-09-17 07:08] LABS: PLATELET COUNT 11 K/uL (156-360)
[2017-09-18 00:16] VITALS: BP 110/69
[2017-09-18 05:32] VITALS: BP 120/72
[2017-09-18 08:37] VITALS: BP 123/64
[2017-09-18 09:27] LABS: HEMATOCRIT 22.2 % (38.0-50.0); HEMOGLOBIN 7.7 G/DL (12.5-16.6); MCH 30.9 PG (29.0-34.0); MCHC 34.7 G/DL (30.0-36.0); MCV 89.2 FL (86-99); RBC DIS.WIDTH-SD 51.3 % (39-53); RED BLOOD COUNT 2.49 M/uL (4.00-5.50); WHITE BLOOD COUNT 5.4 K/uL (4.1-10.2)
[2017-09-18 09:50] LABS: CHLORIDE 93 MEQ/L (99-109); CREATININE 0.5 MG/DL (0.6-1.3); GFR ESTIMATE (CALCULATED) > 59 mL/min/ (58.99-99999); GLUCOSE 141 mg/dL (70-99); SODIUM 136 MEQ/L (136-147); UREA NITROGEN (BUN) 18 mg/dL (9-23)
[2017-09-18 10:45] LABS: PLAT.SUFFICIENCY DECREASED
[2017-09-18 10:56] LABS: PLATELET COUNT 28 K/uL (156-360)
[2017-09-18 11:07] VITALS: BP 119/54
[2017-09-18] MEDS ORDERED: MIRTAZAPINE15 MG PO (12:18)
[2017-09-18] MEDS ORDERED: PREDNISONE10 MG PO (12:18)
[2017-09-18] MEDS ORDERED: ADVAIR HFA120 INHALA IH (12:18)
[2017-09-18] MEDS ORDERED: STIOLTO RESPIMAT4 GM IH (12:18)
[2017-09-18] MEDS ORDERED: ALBUTEROL2.5 MG/3 M IH (12:18)
[2017-09-18] MEDS ORDERED: AMICAR PO (13:00)
[2017-09-18] MEDS ORDERED: AMINOCAPROIC A500 MG PO (13:04)
[2017-09-18] MEDS ORDERED: SPIRIVA18 MCG IH (14:23)
[2017-09-18 15:44] VITALS: BP 121/74
== END 2017-09-18 18:45 | disposition home health service (06) | DRG 177 ==
LOC: EME 20:16 → EDOF 22:11 → 4EAST 22:11 → 5EAST 22:11 → ENRESERV 22:17 → CANRESERV 22:30 → EDOF 23:25 → ENRESERV 23:27 → 5EAST 09-01 00:34 → ENRESERV 09-04 08:27 → 4EAST 09-04 12:22 → ENPENDDIS 09-18 → 4EAST 09-18 18:45
PROVIDERS: Family Medicine; Hospitalist; Internal Medicine; Internal Medicine Hematology & Oncology; Internal Medicine Infectious Disease; Internal Medicine Medical Oncology; Internal Medicine Pulmonary Disease; Physician Assistant
PROC: 30233N1 Transfusion of Nonautologous Red Blood Cells into Peripheral Vein, Percutaneous Approach (ICD-10-PCS; principal; 2017-09-02)
PROC: 30233R1 Transfusion of Nonautologous Platelets into Peripheral Vein, Percutaneous Approach (ICD-10-PCS; 2017-09-05)
DX: J15.211 Pneumonia due to Methicillin susceptible Staphylococcus aureus (principal); J96.01 Acute respiratory failure with hypoxia; J44.0 Chronic obstructive pulmonary disease with (acute) lower respiratory infection; C34.90 Malignant neoplasm of unspecified part of unspecified bronchus or lung; J81.1 Chronic pulmonary edema; D61.810 Antineoplastic chemotherapy induced pancytopenia; B37.0 Candidal stomatitis; E11.9 Type 2 diabetes mellitus without complications; J84.10 Pulmonary fibrosis, unspecified; C77.9 Secondary and unspecified malignant neoplasm of lymph node, unspecified; N17.9 Acute kidney failure, unspecified; C78.7 Secondary malignant neoplasm of liver and intrahepatic bile duct; C79.51 Secondary malignant neoplasm of bone; D63.0 Anemia in neoplastic disease; I25.10 Atherosclerotic heart disease of native coronary artery without angina pectoris; G47.00 Insomnia, unspecified; E87.70 Fluid overload, unspecified; I10 Essential (primary) hypertension; E78.5 Hyperlipidemia, unspecified; T45.1X5A Adverse effect of antineoplastic and immunosuppressive drugs, initial encounter; R04.0 Epistaxis; Z51.5 Encounter for palliative care; E87.6 Hypokalemia; F43.22 Adjustment disorder with anxiety; G89.29 Other chronic pain; F17.200 Nicotine dependence, unspecified, uncomplicated; K59.00 Constipation, unspecified; F32.9 Major depressive disorder, single episode, unspecified; Z85.118 Personal history of other malignant neoplasm of bronchus and lung; Z51.11 Encounter for antineoplastic chemotherapy; Z79.899 Other long term (current) drug therapy; Z99.81 Dependence on supplemental oxygen; Z79.84 Long term (current) use of oral hypoglycemic drugs; I25.2 Old myocardial infarction; Z95.5 Presence of coronary angioplasty implant and graft
CPT/HCPCS: 36415; 71045; 71046; 71260; 71275; 74170; 80048; 80048 91; 80053; 80076; 80202; 82247; 82248; 82948; 83605; 83615; 83690; 83735; 83880; 84100; 84145 90; 84484; 84550; 85014; 85018; 85025; 85025 91; 85027; 85384; 85610; 86850; 86900; 86901; 86920; 87040; 87070; 87077; 87147; 87186; 87205; 87449; 87502; 87641; 93005; 93306; 93970; 94010; 94640; 94640 76; 94667; 94668; 94760; 94799; 99202; 99281; 99285; J0456; J0692; J0696; J1200; J1447; J1626; J1815; J1940; J2270; J2405; J2920; J2930; J3370; J3480; J7030; J7040; J7050; J7512; J9045; J9351; P9016; P9035; P9037; P9040; Q0164; S0017

== ENCOUNTER 2017-10-09 21:58 | Emergency (ER) | payer OTHER, MEDICARE ==
[~2017-10-09] VITALS: Ht 172.7 cm; Wt 58.2 kg
[~2017-10-09 21:58] MED LIST changes: +ADVAIR HFA120 INHALA IH; +ALBUTEROL2.5 MG/3 M IH; +AMARYL1 MG PO; +AMICAR PO; +AMINOCAPROIC A500 MG PO; +CYANOCOBALAM1000 MCG PO; +ENDOCET 5-3251 EACH PO; +MIRTAZAPINE15 MG PO; +NARCAN4 MG NS; +PREDNISONE10 MG PO; +SPIRIVA18 MCG IH; +STIOLTO RESPIMAT4 GM IH
[2017-10-09 22:58] LABS: CARBON DIOXIDE (BICARBONATE) 8.5 MEQ/L (20-31)
[2017-10-09 23:00] LABS: ALBUMIN 3.4 g/dL (3.2-4.8); CHLORIDE 94 mEq/L (99-109); INTER. NORMALIZED RATIO 1.6; POTASSIUM 4.2 mEq/L (3.7-5.4); SODIUM 136 mEq/L (136-147)
[2017-10-09 23:02] LABS: GLUCOSE 112 mg/dL (70-99)
[2017-10-09 23:03] LABS: PTT 24.3 SEC (25-37); TOTAL PROTEIN 6.2 g/dL (6.4-8.3)
[2017-10-09 23:04] LABS: TOTAL BILIRUBIN 11.5 mg/dL (0.0-1.0)
[2017-10-09 23:06] LABS: ALKALINE PHOSPHATASE 450 IU/L (3-129); CREATININE 0.8 mg/dL (0.6-1.3); GFR ESTIMATE (CALCULATED) > 59 mL/min/ (58.99-99999); HEMATOCRIT 24.2 % (38.0-50.0); HEMOGLOBIN 7.6 G/DL (12.5-16.6); MCH 29.7 PG (29.0-34.0); MCHC 31.4 G/DL (30.0-36.0); NRBC (%) 4.3 /100 WBC (0-0); RBC DIS.WIDTH-SD 57.5 % (39-53); RED BLOOD COUNT 2.56 M/uL (4.00-5.50); WHITE BLOOD COUNT 10.9 K/uL (4.1-10.2)
[2017-10-09 23:07] LABS: UREA NITROGEN (BUN) 29 mg/dL (9-23)
[2017-10-09 23:08] LABS: AST (GOT) 655 IU/L (2-34)
[2017-10-09 23:09] LABS: ALT (GPT) 334 IU/L (3-49); LIPASE 91 U/L (1.0-51.0)
[2017-10-09 23:12] LABS: TROP-I INTERPRETATION NEGATIVE; TROPONIN-I < 0.01 ng/mL (0.0-0.30)
[2017-10-09 23:26] LABS: MCV 94.5 FL (86-99)
[2017-10-10 00:55] LABS: PLATELET COUNT 18 K/uL (156-360)
[2017-10-10 05:10] VITALS: BP 77/54
[2017-10-10 13:29] LABS: ANISOCYTOSIS 1+; BURR CELLS 2+; HELMET CELLS 1+; HYPOCHROMASIA 3+; MACROCYTES 1+; PLAT.SUFFICIENCY VERY DECREASED; POIKILOCYTOSIS 3+
[2017-10-10 13:33] LABS: ABS NEUTROPHIL COUNT 6.7; ATYPICAL LYMPHOCYTE 19.6 %; BAND NEUTROPHILS 17.8 % (0-8.0); EOSINOPHIL ABS CT 0; LYMPHOCYTES 2.8 % (15.0-45.0); METAMYELOCYTES 10.3 %; MONOCYTES 1.9 % (0-9.0); MYELOCYTES 3.7 %; NUCLEATED RBC'S 13.1; SEG.NEUTROPHILS 43.9 % (46.0-76.0); SMUDGE CELLS 22.4
== END 2017-10-10 03:26 ==
LOC: EME 21:58 → ENRESERV 10-10 04:05 → CANRESERV 10-10 04:05 → EME 10-10 05:10
PROVIDERS: Emergency Medicine
DX: J96.01 Acute respiratory failure with hypoxia (principal); E87.2 Acidosis; R65.20 Severe sepsis without septic shock; K72.90 Hepatic failure, unspecified without coma; Z85.118 Personal history of other malignant neoplasm of bronchus and lung; D64.9 Anemia, unspecified; D69.6 Thrombocytopenia, unspecified; Z85.05 Personal history of malignant neoplasm of liver; Z85.830 Personal history of malignant neoplasm of bone; R10.84 Generalized abdominal pain; R00.0 Tachycardia, unspecified; I10 Essential (primary) hypertension; E11.9 Type 2 diabetes mellitus without complications; I25.10 Atherosclerotic heart disease of native coronary artery without angina pectoris; I25.2 Old myocardial infarction; Z99.81 Dependence on supplemental oxygen; Z92.21 Personal history of antineoplastic chemotherapy; Z79.84 Long term (current) use of oral hypoglycemic drugs; F17.200 Nicotine dependence, unspecified, uncomplicated
CPT/HCPCS: 80053; 82140; 82803; 83605; 83690; 83880; 84484; 85025; 85610; 85730; 86850; 86900; 86901; 87040; 93005; 94002; 94640; 94799; 99281; 99285; J1940; J2060; J2270; J7070